=== PATIENT | male | born 1970 | race Hispanic/Latino ===

== ENCOUNTER → 2023-10-18 | Outpatient (CLI) | payer BC | END | disposition home or self-care (01) | LOC: RAH 10:31 | DX: J33.9 Nasal polyp, unspecified (principal); J30.89 Other allergic rhinitis; J32.4 Chronic pansinusitis | CPT/HCPCS: 70486 ==

== ENCOUNTER 2024-08-06 22:41 | Emergency (ER) | payer BC ==
[~2024-08-06] VITALS: Ht 162.6 cm; Wt 91.6 kg
[2024-08-06 22:45] VITALS: BP 145/86; TEMP 100
[2024-08-06] MEDS: Solu-medROL 125MG VIAL IVP STA (23:08)
[2024-08-06 23:18] LABS: SARS-CoV-2, RNA, NAAT NEGATIVE SARS CoV-2 (NEGATIVE)
[2024-08-06 23:19] LABS: BASOPHILS # (AUTO) 0.08 K/uL (0.00-0.20); BASOPHILS % (AUTO) 0.6 % (0.0-5.0); EOSINOPHILS # (AUTO) 0.62 K/uL (0.00-0.70); HEMATOCRIT 44.3 % (42-54); IMMATURE GRANULOCYTE ABSOLUTE 0.06 K/uL (0-1); LYMPHOCYTES # (AUTO) 1.5 K/uL (1.0-4.8); LYMPHOCYTES % (AUTO) 11.9 % (21.0-51.0); MEAN CORPUSCULAR HEMOGLOBIN 30.2 pg (27.0-33.0); MEAN CORPUSCULAR HGB CONC 34.1 g/dL (32.0-36.0); MEAN CORPUSCULAR VOLUME 88.6 fL (79-99); MONOCYTES # (AUTO) 0.9 K/uL (0.1-1.0); MONOCYTES % (AUTO) 7.5 % (3.0-13.0); NEUTROPHILS # (AUTO) 9.3 K/uL (1.8-7.7); NEUTROPHILS % (AUTO) 74.5 % (40.0-77.0); PLATELET COUNT (AUTO) 162 K/uL (130-400); RED CELL DISTRIBUTION WIDTH 14.5 % (11.0-15.5); WHITE BLOOD COUNT (AUTO) 12.4 K/uL (4.8-10.8)
[2024-08-06 23:23] LABS: INFLUENZA TYPE A Negative For Type A (NEGATIVE); INFLUENZA TYPE B Negative For Type B (NEGATIVE)
--- NOTE | 2024-08-06 23:24 | HMCIMG ---
CHEST 1VW HISTORY: Pneumonia COMPARISON: None FINDINGS: A frontal projection of the chest was obtained. Mild bilateral pulmonary infiltrates are seen may be related to mild pulmonary vascular congestion with possible superimposed pneumonitis. The heart is normal in size. Mild degenerative changes are seen. No evidence of aortic calcification is seen. IMPRESSION: 1. Mild bilateral pulmonary infiltrates are seen.
[2024-08-06 23:29] LABS: POTASSIUM 3.8 mmol/L (3.5-5.1)
[2024-08-06 23:40] VITALS: PULSE 90; RESP 18
[2024-08-06] MEDS: IpraTROPium/alBUTERol SULFATE 3 ML SOLUTION IH STA (23:40)
[2024-08-07 00:09] LABS: RAPID GROUP A STREP positive (NEGATIVE)
[2024-08-07] MEDS: IpraTROPium/alBUTERol SULFATE 3 ML SOLUTION IH STA (01:03)
[2024-08-07 01:06] VITALS: PULSE 93; RESP 18
[2024-08-07] MEDS ORDERED: PRED50TA2 PO (01:26)
[2024-08-07] MEDS ORDERED: AZIT250T9 PO (01:26)
--- NOTE | 2024-08-07 01:27 | ERN ---
ED Note History of Present Illness Stated Complaint: C/O COUGH W/ PHLEGM, CONGESTION,SORE THROAT,SOB Chief Complaint: Cough Time Seen by MD: 22:50 Time Seen by Midlevel: 22:55 Dictation: 57-year-old male with a history of seasonal allergies and asthma coming in complaining of shortness a breath cough and congestion since yesterday but states it has worsened today. Denies having any fever, nausea, vomiting or diarrhea. Denies any chest pain. Allergies: Coded Allergies: No Known Allergies (Unverified Allergy, Unknown, 08/06/24) Past Medical History Past Medical History: No Pertinent History Surgical History: Other Review of System Dictation Constitutional: Negative for fever,chills, and weight loss Eyes: Negative for injury, pain,redness, and discharge ENT: Negative for injury,pain or swelling Cardiovascular: Negative for chest pain, palpitations, and edema Respiratory: Patient complaining of shortness a breath and cough, Abdomen/GI: Negative for abdominal pain, nausea, vomiting, diarrhea, and constipation Back: Negative for injury and pain : Negative for injury, bleeding and discharge MS/Extremity: Negative for injury and deformity Skin: Negative for rash, and discoloration Neuro: Negative for headache, weakness, numbness, tingling, and seizure Psych: Negative for suicide ideation, homicidal ideation, and hallucinations Review of Systems: was completed Initial Vital Sign VS Vital Signs Date Time Temp Pulse Resp B/P (MAP) Pulse Ox O2 Delivery O2 Flow Rate FiO2 08/06/24 22:45 100.0 100 20 145/86 94 Room Air Physical Exam Dictation General: awake, alert, NAD Head/Face: Normocephalic, atraumatic Eyes: PERRL, EOMI, vision at baseline ENT: oral cavity clear, TMs clear, no signs of infection pharynx mildly erythemic Neck: Trachea midline, supple, no nuchal rigidity Cardiovascular: RRR, normal S1/S2, No MRGs, no JVD Respiratory: Bilateral inspiratory and expiratory wheezing, no respiratory distress, Abdomen: Soft, non-tender, non-distended, normal bowel sounds, no guarding or rebound. Skin: Warm, dry, normal turgor, no rash MS/Extremity: Pulses equal, no cyanosis, neurovascular intact, FROM Neuro: COAx4, GCS 15, strength 5/5, CN 2-12 intact, normal cerebellar exam, norm al gait, Psych: Normal behavior, mood, and affect normal Results (Laboratory/Radiology) Laboratory/Radiology Laboratory Tests Test 08/06/24 22:48 08/06/24 23:06 Influenza Type A Antigen Negative For Type A Influenza Type B Antigen Negative For Type B SARS-CoV-2, RNA, NAAT NEGATIVE SARS CoV-2 Group A Streptococcus Rapid positive (NEGATIVE) *A White Blood Count 12.4 K/uL (4.8-10.8) H Red Blood Count 5.00 MIL/uL (4.50-6.20) Hemoglobin 15.1 g/dL (14.0-18.0) Hematocrit 44.3 % (42-54) Mean Corpuscular Volume 88.6 fL (79-99) Mean Corpuscular Hemoglobin 30.2 pg (27.0-33.0) Mean Corpuscular Hemoglobin Concent 34.1 g/dL (32.0-36.0) Red Cell Distribution Width 14.5 % (11.0-15.5) Platelet Count 162 K/uL (130-400) Mean Platelet Volume 11.7 fL (7.5-10.5) H Immature Granulocyte % (Auto) 0.5 % (0-1) Neutrophils (%) (Auto) 74.5 % (40.0-77.0) Lymphocytes (%) (Auto) 11.9 % (21.0-51.0) L Monocytes (%) (Auto) 7.5 % (3.0-13.0) Eosinophils (%) (Auto) 5.0 % (0.0-8.0) Basophils (%) (Auto) 0.6 % (0.0-5.0) Neutrophils # (Auto) 9.3 K/uL (1.8-7.7) H Lymphocytes # (Auto) 1.5 K/uL (1.0-4.8) Monocytes # (Auto) 0.9 K/uL (0.1-1.0) Eosinophils # (Auto) 0.62 K/uL (0.00-0.70) Basophils # (Auto) 0.08 K/uL (0.00-0.20) Absolute Immature Granulocyte (auto 0.06 K/uL (0-1) Nucleated Red Blood Cells 0.0 % (0.0-0.19) Sodium Level 143 mmol/L (136-145) Potassium Level 3.8 mmol/L (3.5-5.1) Chloride Level 105 mmol/L (101-111) Carbon Dioxide Level 31 mmol/L (21-32) Blood Urea Nitrogen 13 mg/dL (7-18) Creatinine 1.0 mg/dL (0.5-1.3) Glomerular Filtration Rate Calc 91 mL/min (>90) Random Glucose 131 mg/dL (70-105) H Total Calcium 8.8 mg/dL (8.5-10.1) Labs Reviewed?: Yes X-RAY Comment: [facility] [address] [place] [address] IMAGING REPORT Signed PATIENT: PARVEEN STEVENS MR#: [id number] : 1970 SEX: M AGE: 54 LOCATION: [facility] ORDER 45 STATUS: REG ER REPORT#: [id number] SERVICE 44 REASON: Evaluate Pneumonia ORDERING PHYSICIAN: LISA HESTER MD PROCEDURE: CXR1VW - CHEST 1VW CHEST 1VW HISTORY: Pneumonia COMPARISON: None FINDINGS: A frontal projection of the chest was obtained. Mild bilateral pulmonary infiltrates are seen may be related to mild pulmonary vascular congestion with possible superimposed pneumonitis. The heart is normal in size. Mild degenerative changes are seen. No evidence of aortic calcification is seen. IMPRESSION: 1. Mild bilateral pulmonary infiltrates are seen. DICTATED BY: CLEVE WALTERS MD DATE: 08/06/242319 ELECTRONICALLY SIGNED BY: CLEVE WALTERS MD DATE: 08/06/242323 ED Course ED Course Orders Procedure Category Date Status Time Covid Rna Naat LAB 08/06/24 Complete 22:43 Influenza Type A & B, LAB 08/06/24 Complete Rapid 22:43 Rapid (Group A Strep) LAB 08/06/24 Complete 22:43 Cbc With Differential LAB 08/06/24 Complete 22:45 Basic Metabolic Panel LAB 08/06/24 Complete 22:45 Chest 1vw RAD 08/06/24 Resulted 22:45 Methylprednisolone PHA 08/06/24 Complete Succ 125mg (Solu-Medr 22:50 Ipratropium/Albuterol PHA 08/06/24 Complete Neb (Duoneb) 22:50 Ipratropium/Albuterol PHA 08/07/24 Complete Neb (Duoneb) 00:17 Current Medications Medications (Trade) Dose Ordered Sig/Ann Marie Route PRN Reason Start Time Stop Time Status Last Admin Dose Admin Albuterol (DUOneb) 1 UDVIAL ONCE STAT IH 08/06/24 22:50 08/06/24 22:52 DC 08/06/24 23:40 Albuterol (DUOneb) 1 UDVIAL ONCE STAT IH 08/07/24 00:17 08/07/24 00:29 DC 08/07/24 01:03 Methylprednisolone Sodium Succinate (Solu-medROL 125MG) 125 mg ONCE STAT IVP 08/06/24 22:50 08/06/24 22:52 DC 08/06/24 23:08 Vital Signs Date Time Temp Pulse Resp B/P (MAP) Pulse Ox O2 Delivery O2 Flow Rate FiO2 08/07/24 01:06 93 18 08/06/24 23:40 90 18 08/06/24 22:45 100.0 100 20 145/86 94 Room Air Medical Decision Making MDM MDM: 57-year-old male with a history of seasonal allergies and asthma coming in complaining of shortness a breath cough and congestion since yesterday but states it has worsened today. Denies having any fever, nausea, vomiting or diarrhea. Denies any chest pain. On physical exam patient has inspiratory and expiratory wheezing, no respiratory distress, no tachypnea or work of breathing. CBC shows mild leukocytosis, no anemia, no thrombocytopenia. Chemistry unremarkable. Serology positive for strep. Patient received IV steroids, and to nebulizing treatments. Patient feels better after the 2nd treatment. Was able to ambulate around the emergency room with O2 sats at 96%. Discussed findings with the patient. Educated patient that we will give him an antibiotic for both strep and pneumonitis and steroids to take at home. Educated if symptoms do not improve to return back to the emergency room. Patient verbalized understanding, answered all questions. Differential diagnosis: Acute asthma exacerbation, pneumonia, COVID, influenza, viral syndrome Rationale: Tests considered and ordered secondary to shared decision making include: Previous outside records reviewed: Old ER visits. Risk of complication and/or morbidity or mortality of patient management: None Medications-Per medication reconciliation Need for hospitalization: Patient does not meet criteria for hospitalization. Need for emergency major/minor surgery: No There are no social concerns with this patient. Prescription drug management Prescriptions will include symptomatic care Patient's prior external medical records from other ER visits were reviewed by me as indicated. Prior testing and results from previous visits were reviewed. Prior tests were taken into account with medical decision making and resource utilization, independent historian/historians were used to obtain complete medical history. I independently interpreted the test that were performed, results were reviewed by me and considered findings on radiology if ordered. Medical management and examination interpretation discussions were had by me with other qualified healthcare professionals as indicated for the patient's care. DX & DISP Disposition: Discharge Departure Impression: Primary Impression: Strep throat Additional Impressions: Asthma attack, Pneumonitis Condition: Stable Scripts Prednisone (Prednisone) 50 Mg Tablet 50 MG PO DAILY for 5 Days, #5 TAB 0 Refills Prov: LUCIO HI NP 08/07/24 Azithromycin (Azithromycin) 250 Mg Tablet 1 TAB PO AD for 5 Days, #6 TAB 0 Refills 2 the first day followed by 1 for days 2-5 Prov: LUCIO HI NP 08/07/24 Additional Instructions: You can take [id number] Flonase and try loratadine or Claritin. If your symptoms do not improve in the next couple of days please return back to the emergency room. Continue doing your nebulizer treatments at home along with the medications that I prescribed. Referrals: MINE FLETCHER (PCP) Time of Disposition: 01:26 I have reviewed the case, and I agree with, Diagnosis and Plan LUCIO HI NP Aug 07, 2024 01:27
== END 2024-08-07 01:34 | disposition home or self-care (01) ==
LOC: EDH 22:41
DX: J02.0 Streptococcal pharyngitis (principal); J18.9 Pneumonia, unspecified organism; J45.909 Unspecified asthma, uncomplicated; Z98.890 Other specified postprocedural states; Z20.822 Contact with and (suspected) exposure to COVID-19
CPT/HCPCS: 99284; 96374; 71045; 87635; 80048; 85025; 87880; 87804 ×2; 36415; 94640 ×2; J2919